=== PATIENT | male | born 1955 | race Caucasian/White ===

== ENCOUNTER 2017-10-16 21:21 | Inpatient (IN) | payer OTHER ==
[~2017-10-16] VITALS: Ht 175.3 cm; Wt 104.0 kg
[2017-10-16 21:28] VITALS: Ht 175.3 cm; Wt 104.0 kg
[2017-10-16 23:04] LABS: BASOPHIL % 0.5 % (0-2); PLATELET COUNT 234 x10^3mcL (130-400); RED CELL DISTRIBUTION WIDTH 12.7 % (11.5-14.5)
[2017-10-16 23:20] LABS: CALCIUM 8.9 mg/dL (8.5-10.1); CHLORIDE SERUM 105 mmol/L (98-107); GFR1 > 60 mL/min; GLUCOSE SERUM 104 mg/dL (74-106); POTASSIUM SERUM 3.6 mmol/L (3.5-5.1); SODIUM SERUM 140 mmol/L (136-145)
[2017-10-16 23:25] LABS: ALBUMIN 3.4 g/dL (3.4-5.0); ALKALINE PHOSPHATASE 75 U/L (46-116); ALT/SGPT 32 U/L (16-63); AST/SGOT 41 U/L (15-37); BILIRUBIN TOTAL 0.29 mg/dL (0.20-1.00); LIPASE 188 IU/L (73-393); TOTAL PROTEIN, SERUM 7.1 g/dL (6.4-8.2)
[2017-10-17] MEDS ORDERED: SIMVASTATIN10 M1 (00:18)
[2017-10-17 01:29] VITALS: BP 150/89
[2017-10-17 01:50] LABS: microscopic required? NO
[2017-10-17 02:06] LABS: urine erythrocyte NEGATIVE (NEGATIVE)
[2017-10-17 02:39] LABS: AMPHETAMINE QUAL UR NONE DETECTED (NEG <=1000)
[2017-10-17 03:15] LABS: CHOLESTEROL/HDL RATIO 3.5; MAGNESIUM 2.3 mg/dL (1.8-2.4); PHOSPHOROUS 4.4 mg/dL (2.5-4.9)
[2017-10-17 03:25] LABS: FREE THYROXINE INDEX 2.7 ug/dL (1.4-4.5); T4(THYROXINE) 7.8 ug/dL (4.7-13.3)
[2017-10-17 03:33] LABS: T3 TOTAL 1.14 ng/mL
[2017-10-17 04:11] VITALS: BP 150/89
[2017-10-17 06:12] VITALS: BP 117/74
[2017-10-17 09:16] LABS: BASOPHIL % 0.5 % (0-2); PLATELET COUNT 228 x10^3mcL (130-400)
[2017-10-17 09:30] LABS: CARBON DIOXIDE 30.3 mmol/L (21-32); CHLORIDE SERUM 106 mmol/L (98-107); CREATININE SERUM 0.9 mg/dL (0.7-1.3); GFR1 > 60 mL/min; GLUCOSE SERUM 112 mg/dL (74-106); POTASSIUM SERUM 3.8 mmol/L (3.5-5.1); SODIUM SERUM 142 mmol/L (136-145)
[2017-10-17 09:55] VITALS: BP 119/77
[2017-10-17 12:45] VITALS: BP 140/83
[2017-10-17] MEDS ORDERED: ZES5 PO (16:33)
[2017-10-17] MEDS ORDERED: ATORVASTATIN CA40 M1 PO (16:33)
[2017-10-17] MEDS ORDERED: ECO81 PO (16:34)
[2017-10-17 16:40] VITALS: BP 140/83
== END 2017-10-17 17:22 | disposition home or self-care (01) | DRG 206 ==
LOC: ED 21:21 → DU 23:51
PROVIDERS: Emergency Medicine; Family Medicine; Family Medicine Sports Medicine
DX: M94.0 Chondrocostal junction syndrome [Tietze] (principal); E78.00 Pure hypercholesterolemia, unspecified; E78.5 Hyperlipidemia, unspecified; G47.33 Obstructive sleep apnea (adult) (pediatric); Z60.2 Problems related to living alone; R00.1 Bradycardia, unspecified; I10 Essential (primary) hypertension; Z79.899 Other long term (current) drug therapy
CPT/HCPCS: 83880; 84439; J7030; Q0092